=== PATIENT | male | born 1990 | race Caucasian/White ===

== ENCOUNTER 2018-08-22 07:14 | Emergency (ER) | payer OTHER ==
[2018-08-22 07:30] VITALS: BP 130/71
[2018-08-22] MEDS ORDERED: Tetracaine 0.5% OPTH.SOL 4 ML* 1 DROP BTL ONE (07:32)
[2018-08-22] MEDS ORDERED: Tetracaine 0.5% OPTH.SOL 4 ML* 1 DROP BTL LEFT EYE ONE (07:32)
[2018-08-22] MEDS ORDERED: Fluorescein Sodium TOPICAL* 1 MG TEST STRIP OPHTHALMIC ONE (07:32)
[2018-08-22] MEDS ORDERED: BSS OPTH.SOL* BTL ONE (07:32)
[2018-08-22] MEDS ORDERED: Fluorescein Sodium TOPICAL* 1 MG TEST STRIP ONE (07:33)
--- NOTE | 2018-08-22 08:08 | UC ---
Eye Complaint HPI - HPI Summary HPI Summary: left eye pain x 1 day injury to his left eye last night , metal shaving jumped into his left eye as he was sharpening his knife, + pain , redness, photophobia, blurry vision cannot keep his left eye open , pain is 6 out of 10 , worse with light, better in a dark room - History of Current Complaint Chief Complaint: UCEye Stated Complaint: LT EYE CONCERN Time Seen by Provider: 08/22/18 07:32 Hx Obtained From: Patient, Family/Scutcher Tender Onset/Duration: Sudden Onset, Lasting Days - 1, Still Present Timing: Constant Severity Initially: Moderate Severity Currently: Moderate Pain Intensity: 5 Location of Injury: Conjunctiva - left eye Aggravating Factor(s): Light, Blinking Alleviating Factor(s): Darkness Associated Signs And Symptoms: Positive: Photophobia, Drainage (Clear), Vision Impairment Left. Negative: Drainage (Purulent), Vision Impairment Right, Fever , Swelling - Allergies/Home Medications Allergies/Adverse Reactions: Allergies Allergy/AdvReac Type Severity Reaction Status Date / Time No Known Allergies Allergy Verified 08/22/18 07:30 PMH/Surg Hx/FS Hx/Imm Hx Previously Healthy: Yes - Surgical History Surgical History: None - Family History Known Family History: Positive: Non-Contributory - Social History Alcohol Use: Daily Alcohol Amount: 2/week Substance Use Type: Marijuana Substance Use Comment - Amount & Last Used: daily usage Smoking Status (MU): Heavy Every Day Tobacco Smoker Type: Cigarettes Amount Used/How Often: 1 ppd Length of Time of Smoking/Using Tobacco: since age 19 Have You Smoked in the Last Year: Yes Review of Systems All Other Systems Reviewed And Are Negative: Yes Constitutional: Positive: Negative Skin: Positive: Negative Eyes: Positive: Blurred Vision, Eye Redness, Photophobia. Negative: Drainage ENT: Positive: Negative Is Patient Immunocompromised?: No Physical Exam Triage Information Reviewed: Yes Appearance: Well-Nourished, Pain Distress Vital Signs: Initial Vital Signs Temp 97.3 F 08/22/18 07:23 Pulse 63 08/22/18 07:23 Resp 16 08/22/18 07:23 BP 130/71 08/22/18 07:23 Pulse Ox 100 08/22/18 07:23 Vital Signs Reviewed: Yes Eye Exam: Normal Eyes: Positive: Conjunctiva Clear, Other: - no fb noted in his left eye , no abrasio noted, + photophobia. Negative: Conjunctiva Inflamed, Discharge ENT: Positive: Normal ENT inspection, Hearing grossly normal, Pharynx normal Neck exam: Normal Neck: Positive: Supple, Nontender, No Lymphadenopathy Respiratory: Positive: Chest non-tender, Lungs clear, Normal breath sounds Cardiovascular: Positive: RRR, No Murmur, Pulses Normal Skin Exam: Normal Eye Complaint Course/Dx - Differential Dx/Diagnosis Provider Diagnosis: Iritis Discharge - Sign-Out/Discharge Documenting (check all that apply): Patient Departure All imaging exams completed and their final reports reviewed: No Studies - Discharge Plan Condition: Stable Disposition: HOME Prescriptions: Tobramycin/Dexameth OPTH.SUSP* [Tobradex 0.3-0.1%*] 1 drop LEFT EYE Q4H #1 btl Patient Education Materials: Iritis (ED), Corneal Abrasion (ED) Referrals: López Mendoza MD [Primary Care Provider] - Jerzy Luis MD [Medical Doctor] - As Soon As Possible - Billing Disposition and Condition Condition: STABLE Disposition: Home
== END 2018-08-22 07:52 | disposition home or self-care (01) ==
LOC: UCCORT 07:14
DX: H20.9 Unspecified iridocyclitis (principal); F17.210 Nicotine dependence, cigarettes, uncomplicated
CPT/HCPCS: 99212; A9270-GY; G0463

== ENCOUNTER 2019-07-02 14:44 | Emergency (ER) | payer OTHER ==
[2019-07-02 14:58] VITALS: BP 136/91
[2019-07-02] MEDS ORDERED: Fluorescein Sodium TOPICAL* 1 MG TEST STRIP OPHTHALMIC ONE (14:58)
--- NOTE | 2019-07-02 14:59 | UC ---
Eye Complaint HPI - HPI Summary HPI Summary: 29 yo with many months history of right eye irritation, with evaluation by Dr. Nowak in the past. When last seen about 6 weeks ago he was advised that he had dry eyes, and should compress twice daily. This has not helped the problem. For the last 3 days, he has had had increased irritation without discarge in the right outer eye. No photophobia and no change in visual acuity. In his recall, the problem dates back to having a foreign body in the eye about 9 months ago. Review of the evaluation from August 2018 - History of Current Complaint Chief Complaint: UCEye Stated Complaint: EYE COMPLAINT Time Seen by Provider: 07/02/19 14:50 Hx Obtained From: Patient Onset/Duration: Gradual Onset Timing: Constant Severity Initially: Moderate Severity Currently: Mild Pain Intensity: 4 Location of Injury: Conjunctiva, Eye Lid (lower) Character: Sharp Aggravating Factor(s): Nothing - no photophobia Alleviating Factor(s): Nothing - he has tried use of moisturizing drops without relief Associated Signs And Symptoms: Negative: Photophobia, Drainage (Clear), Vision Impairment Bilateral, Swelling Related History: Similar Episode - foreign body, followed by chronic irritiation - Risk Factors Penetrating Injury Risk Factor: Negative Globe Rupture Risk Factors: Negative Acute Glaucoma Risk Factors: Negative Optic Artery Occlusion Risk Factors: Negative - Allergies/Home Medications Allergies/Adverse Reactions: Allergies Allergy/AdvReac Type Severity Reaction Status Date / Time No Known Allergies Allergy Verified 07/02/19 14:52 Home Medications: Home Medications Ibuprofen TAB* [Motrin TAB* 400 MG] 400 mg PO Q6H PRN 07/02/19 [History Confirmed 07/02/19] Ketorolac 0.5% OPHTH (NF) 1 drop RIGHT EYE QID PRN #1 btl 07/02/19 [Rx] Mineral Oil, Light/Mineral Oil [Soothe Xp/Xtra Protection] 1 stu OP BID [History Confirmed 07/02/19] PMH/Surg Hx/FS Hx/Imm Hx Previously Healthy: Yes - Surgical History Surgical History: None - Family History Known Family History: Positive: Diabetes - Social History Occupation: Employed Full-time Alcohol Use: Daily Alcohol Amount: 2/week Substance Use Type: Marijuana Substance Use Comment - Amount & Last Used: daily usage Smoking Status (MU): Heavy Every Day Tobacco Smoker Type: Cigarettes Amount Used/How Often: 1 ppd Length of Time of Smoking/Using Tobacco: since age 19 Have You Smoked in the Last Year: Yes Review of Systems All Other Systems Reviewed And Are Negative: Yes Constitutional: Positive: Negative Skin: Positive: Negative. Negative: Rash Eyes: Positive: Negative ENT: Positive: Negative. Negative: Sore Throat Respiratory: Positive: Negative Cardiovascular: Positive: Negative Gastrointestinal: Positive: Negative Genitourinary: Positive: Negative Motor: Positive: Negative Neurovascular: Positive: Negative Musculoskeletal: Positive: Negative Neurological/Mental Status: Positive: Negative Psychological: Positive: Negative Is Patient Immunocompromised?: No Physical Exam Triage Information Reviewed: Yes Appearance: Well-Appearing, Pain Distress - mild Vital Signs Reviewed: Yes Eye Exam: Other - RENETTA, clear cornea without fluorscein uptake. No photophobia. Eyes: Positive: Conjunctiva Inflamed - right out with injection lateral corner of eye. + fluorescein uptake in the lower lid conjunctival sac, no foreign body seen. Negative: Discharge ENT: Positive: Pharynx normal, Other - upper denture Neck: Positive: Supple, Nontender, No Lymphadenopathy Respiratory Exam: Normal Cardiovascular Exam: Normal Musculoskeletal Exam: Normal Neurological Exam: Normal Psychological Exam: Normal Skin Exam: Normal Eye Complaint Course/Dx - Course Course Of Treatment: Longstanding problem, and he is here today because he was unable to be seen by Dr. Nowak today, whose office is now closed. Given chronicity of the problem without apparent cause, advised to call office tomorrow to arrange a visit. Trial of acular for pain in the eye - Differential Dx/Diagnosis Differential Diagnosis/HQI/PQRI: Conjunctivitis, Corneal Abrasion, Penetrating Injury Provider Diagnosis: Pain, eye, right Discharge ED - Sign-Out/Discharge Documenting (check all that apply): Patient Departure All imaging exams completed and their final reports reviewed: No Studies - Discharge Plan Condition: Stable Disposition: HOME Prescriptions: Ketorolac 0.5% OPHTH (NF) 1 drop RIGHT EYE QID PRN #1 btl PRN Reason: Pain - Moderate Patient Education Materials: Conjunctivitis (ED) Referrals: No Primary Care Phys,NOPCP [Primary Care Provider] - Alexander Nowak MD [Medical Doctor] - Additional Instructions: You have irritation in the conjunctiva of uncertain source. You can use Acular eye drops for relief of pain, but I suggest that you have a follow up with Dr. Nowak for evaluation. Please call his office tomorrow morning to arrange a visit. Continue compresses to the eye for relief of irritation. - Billing Disposition and Condition Condition: STABLE Disposition: Home
== END 2019-07-02 15:45 | disposition home or self-care (01) ==
LOC: UCEAST 14:44
DX: H57.11 Ocular pain, right eye (principal); F17.210 Nicotine dependence, cigarettes, uncomplicated
CPT/HCPCS: 99212; A9270-GY; G0463